=== PATIENT | female | born 1980 | race Asian ===

== ENCOUNTER 2019-09-28 16:00 | Emergency (ER) | payer OTHER ==
[2019-09-28 16:14] VITALS: BP 126/84
--- NOTE | 2019-09-28 17:06 | UC ---
Cardiac HPI - HPI Summary HPI Summary: 39-year-old female comes in with a chief complaint of chest tightness. Started about half hour prior to arrival. It's in midsternal area. No radiation of pain. Does feel short of breath with it. No nausea. At its worse is about a 6 or 8 out of 10. Now it's about a 4 out of 10. With normal activity levels patient is not getting any chest pain. This episode occurred during an emotional argument. Over the last 2 weeks patient reports that when she feels anxiety 2 to emotional conflict she's been getting some chest pressure. No history of hypertension or DVT or pulmonary embolus. Patient does not have diabetes. No cough chest congestion respiratory congestion. No pedal edema no calf pain. - History of Current Complaint Chief Complaint: UCChestPain Stated Complaint: CHEST PRESSURE Time Seen by Provider: 09/28/19 16:10 Hx Last Menstrual Period: 09/10/19 Pain Intensity: 5 - Allergy/Home Medications Allergies/Adverse Reactions: Allergies Allergy/AdvReac Type Severity Reaction Status Date / Time prochlorperazine Allergy dystonic Verified 09/28/19 16:14 [From Compazine] reaction PMH/Surg Hx/FS Hx/Imm Hx Previously Healthy: Yes - Surgical History Surgical History: Yes Surgery Procedure, Year, and Place: wisdom teeth removed - Family History Known Family History: Positive: Non-Contributory - Social History Alcohol Use: None Substance Use Type: None Smoking Status (MU): Never Smoked Tobacco Review of Systems All Other Systems Reviewed And Are Negative: Yes Constitutional: Positive: Other - SEE HPI Skin: Positive: Negative Eyes: Positive: Negative ENT: Positive: Negative Respiratory: Positive: Shortness Of Breath Cardiovascular: Positive: Chest Pain Gastrointestinal: Positive: Negative Motor: Positive: Negative Neurovascular: Positive: Negative Musculoskeletal: Positive: Negative Neurological: Positive: Negative Psychological: Positive: Negative Is Patient Immunocompromised?: No Physical Exam Triage Information Reviewed: Yes Appearance: Well-Appearing, No Pain Distress, Well-Nourished Vital Signs: Initial Vital Signs Temp 99 F 09/28/19 16:08 Pulse 86 09/28/19 16:08 Resp 18 09/28/19 16:08 BP 126/84 09/28/19 16:08 Pulse Ox 99 09/28/19 16:08 Vital Signs Reviewed: Yes Eye Exam: Normal Eyes: Positive: Conjunctiva Clear Neck: Positive: Supple Respiratory: Positive: Chest non-tender, Lungs clear, Normal breath sounds, No respiratory distress Cardiovascular: Positive: RRR Abdomen Description: Positive: Nontender, Soft Bowel Sounds: Positive: Present Musculoskeletal: Positive: ROM Intact, No Edema - NO CALF TENDERNESS Neurological: Positive: Alert, Muscle Tone Normal Psychological: Positive: Age Appropriate Behavior Skin Exam: Normal Diagnostics - EKG Cardiac Rate: NL - AT 1606 Cardiac Rhythm: Sinus: Normal - 78 BPM Ectopy: None ST Segment: Normal - Assessment/Plan Course Of Treatment: Discussed EKG with the patient and her . I do not see any ischemic changes or irregular rhythm. Patient reports that she's been having the chest pressure only during times of emotional stress. At 39 years old with no history of hypertension or diabetes or hypercholesterolemia without a close family history of cardiac problems patient is low risk for atherosclerosis cardiovascular disease. I discussed that to evaluate for cardiac ischemia week needed troponin drawn which is blood value that only can be drawn in the emergency department and I recommended that if there is a concern of cardiac ischemia patient needs to go the emergency department. At this time the patient prefers to not go the emergency department. Overall the plan is to follow-up with her primary care physician however if she does worsen she is going to go to the emergency department. - Clinical Impression Provider Diagnosis: Chest pain, Anxiety Discharge ED - Sign-Out/Discharge Documenting (check all that apply): Patient Departure All imaging exams completed and their final reports reviewed: No Studies - Discharge Plan Condition: Stable Disposition: HOME Patient Education Materials: Chest Pain (ED), Anxiety (ED) Referrals: Lesa Sharp MD [Primary Care Provider] - Additional Instructions: FOLLOW UP WITH YOUR PRIMARY CARE DOCTOR. GO TO THE EMERGENCY DEPARTMENT IF NOT IMPROVED OR WORSE; CHEST PAIN, SHORTNESS OF BREATH, YOU FEEL LIKE PASSING OUT, YOU FEEL ILL, RACING HEART OR ANY QUESTIONS OR CONCERNS. - Billing Disposition and Condition Condition: STABLE Disposition: Home
== END 2019-09-28 17:15 | disposition home or self-care (01) ==
LOC: UCEAST 16:00
DX: R07.9 Chest pain, unspecified (principal); F41.9 Anxiety disorder, unspecified; R06.02 Shortness of breath; Z88.8 Allergy status to other drugs, medicaments and biological substances
CPT/HCPCS: 93005; 99211; G0463